=== PATIENT | female | born 1990 | race African-American/Black ===

== ENCOUNTER 2021-02-09 12:30 | Emergency (ER) | payer SELFPAY ==
[~2021-02-09] VITALS: Ht 160 cm; Wt 70.0 kg
[2021-02-09 13:14] VITALS: BP 103/67
[2021-02-09] MEDS ORDERED: METOCLOPRAMIDE HCL 5MG TABLET PO ONE (14:15)
[2021-02-09] MEDS ORDERED: ACETAMINOPHEN 500MG TABLET PO ONE (14:15)
[2021-02-09 15:39] LABS: CLARITY URINE CLEAR (CLEAR); COLOR URINE YELLOW (YELLOW); KETONES URINE NEGATIVE (NEGATIVE); LEUKOCYTE ESTERASE URINE NEGATIVE (NEGATIVE); NITRITE URINE NEGATIVE (NEGATIVE); OCCULT BLOOD URINE NEGATIVE (NEGATIVE); PH URINE 6.5 (4.5-8.0); PROTEIN URINE NEGATIVE (NEGATIVE); UROBILINOGEN URINE 0.2 E.U./dL (0.2-1.0)
[2021-02-09] MEDS ORDERED: METO5TAB86 MT (15:51)
[2021-02-09] MEDS ORDERED: ACET325C7 PO (15:51)
== END 2021-02-09 16:07 | disposition home or self-care (01) ==
LOC: EDSEX 13:37 → ER 13:37
DX: O26.891 Other specified pregnancy related conditions, first trimester (principal); Z3A.01 Less than 8 weeks gestation of pregnancy
CPT/HCPCS: 36415; 76801; 76817; 81003; 81025; 84702; 99284; J8597